=== PATIENT | female | born 1980 | race Caucasian/White ===

== ENCOUNTER 2017-03-22 17:12 | Emergency (ER) | payer OTHER ==
[~2017-03-22] VITALS: Ht 154.9 cm; Wt 80.7 kg
[~2017-03-22 17:12] MED LIST: FLEXERIL10 MG PO; GLUCOPHAGE1000 MG PO; NOVOLOG 10100 UNITS/ SC; PERCOCET 5/31 TABLET PO
[2017-03-22 17:42] LABS: POINT-OF-CARE METER ID UU13113778; POINT-OF-CARE USER ID NUTJLF39
[2017-03-22 18:14] LABS: HEMATOCRIT 42.8 % (36.0-46.0); MCH 28.3 PG (29.0-34.0); MCHC 33.9 G/DL (30.0-36.0); MCV 83.6 FL (83-99); MEAN PLAT.VOLUME 11.6 uM^3 (9.5-12.4); PLATELET COUNT 222 K/uL (156-360); RBC DIS.WIDTH-CV 12.3 % (11.8-14.6); RBC DIS.WIDTH-SD 37.2 % (39-53); RED BLOOD COUNT 5.12 M/uL (3.80-5.20); WHITE BLOOD COUNT 10.1 K/uL (4.1-10.2)
[2017-03-22 18:23] LABS: CHLORIDE 101 mEq/L (99-109); POTASSIUM 3.8 mEq/L (3.7-5.4); SODIUM 133 mEq/L (136-147)
[2017-03-22 18:27] LABS: ANION GAP 8 MEQ/L (2-14); TOTAL BILIRUBIN 0.7 mg/dL (0.0-1.0)
[2017-03-22 18:29] LABS: ALKALINE PHOSPHATASE 90 IU/L (3-129); GFR ESTIMATE (CALCULATED) > 59 mL/min/
[2017-03-22 18:30] LABS: UREA NITROGEN (BUN) 14 mg/dL (9-23)
[2017-03-22 18:33] LABS: LIPASE 22 U/L (1.0-51.0)
[2017-03-22 18:38] LABS: QUANTITATIVE HCG < 4.0 MIU/ML
[2017-03-22 18:53] LABS: GLUCOSE 423 mg/dL (70-99)
[2017-03-22 18:53] LABS: ADD MIUA? YES; BILIRUBIN NEGATIVE; BLOOD NEGATIVE; COLOR YELLOW ((YELLOW)); GLUCOSE (STRIP) >=500; KETONES NEGATIVE; LEUKOCYTES NEGATIVE; NITRITE NEGATIVE; PROTEIN (STRIP) NEGATIVE; SPECIFIC GRAVITY 1.043 (1.000-1.030); UROBILINOGEN 0.2 MG/DL (0.2-1.0)
[2017-03-22 18:56] LABS: BACTERIA NONE SEEN /HPF; EPITHELIAL CELLS 1+ /HPF; MUCUS TRACE /LPF; RED BLOOD CELLS 0-5 /HPF (0-5); UCUL ADDED? YES
[2017-03-22] MEDS ORDERED: NORCO 5/3251 TABLET PO (19:59)
[2017-03-22] MEDS ORDERED: COMPAZINE10 MG PO (20:02)
[2017-03-22] MEDS ORDERED: PROTONIX40 MG PO (20:21)
[2017-03-22 20:36] LABS: POINT-OF-CARE METER ID UU13113747
[2017-03-22 21:00] VITALS: BP 131/91
== END 2017-03-22 21:34 | disposition home or self-care (01) ==
LOC: EME 17:12
PROVIDERS: Emergency Medicine
DX: R10.9 Unspecified abdominal pain (principal); E11.9 Type 2 diabetes mellitus without complications; Z96.41 Presence of insulin pump (external) (internal); Z87.891 Personal history of nicotine dependence
CPT/HCPCS: 74177; 76705; 80053; 81003; 82010; 82948; 83690; 84702; 85027; 87086; 93005; 99281; 99285; J0780; J2405; J7030

== ENCOUNTER 2017-09-04 00:30 | Emergency (ER) | payer OTHER ==
[~2017-09-04] VITALS: Ht 154.9 cm; Wt 83.0 kg
[~2017-09-04 00:30] MED LIST changes: +COMPAZINE10 MG PO; +NORCO 5/3251 TABLET PO; +PROTONIX40 MG PO
[2017-09-04 00:44] VITALS: BP 120/100
[2017-09-04] MEDS ORDERED: ZITHROMAX Z-PA250 MG PO (01:49)
[2017-09-04] MEDS ORDERED: SUDAFED PE PRE1 EAC1 PO (01:49)
[2017-09-04] MEDS ORDERED: DIFLUCAN150 MG PO (01:52)
== END 2017-09-04 02:07 | disposition home or self-care (01) ==
LOC: EME 00:30
DX: H66.92 Otitis media, unspecified, left ear (principal); J01.90 Acute sinusitis, unspecified; B37.49 Other urogenital candidiasis; E11.9 Type 2 diabetes mellitus without complications; Z79.84 Long term (current) use of oral hypoglycemic drugs; F17.200 Nicotine dependence, unspecified, uncomplicated
CPT/HCPCS: 99281; 99284

== ENCOUNTER 2018-01-14 18:57 | Emergency (ER) | payer SELFPAY ==
[~2018-01-14] VITALS: Ht 154.9 cm; Wt 77.3 kg
[~2018-01-14 18:57] MED LIST changes: +DIFLUCAN150 MG PO; +SUDAFED PE PRE1 EAC1 PO; +ZITHROMAX Z-PA250 MG PO
[2018-01-14] MEDS ORDERED: CLEOCIN300 MG PO (21:57)
[2018-01-14 22:44] VITALS: BP 124/81
== END 2018-01-14 22:46 | disposition home or self-care (01) ==
LOC: EME 18:57
DX: S93.402A Sprain of unspecified ligament of left ankle, initial encounter (principal); W10.9XXA Fall (on) (from) unspecified stairs and steps, initial encounter; E11.9 Type 2 diabetes mellitus without complications; Z79.4 Long term (current) use of insulin; Z96.41 Presence of insulin pump (external) (internal); F17.200 Nicotine dependence, unspecified, uncomplicated; Z88.5 Allergy status to narcotic agent
CPT/HCPCS: 73610; 81003; 81025; 99281; 99284; J1885

== ENCOUNTER 2018-02-03 19:18 | Emergency (ER) | payer SELFPAY ==
[~2018-02-03] VITALS: Ht 154.9 cm; Wt 75.9 kg
[~2018-02-03 19:18] MED LIST changes: +CLEOCIN300 MG PO
[2018-02-03 20:49] LABS: APPEARANCE CLOUDY ((CLEAR)); BILIRUBIN NEGATIVE; BLOOD MODERATE; COLOR YELLOW ((YELLOW)); GLUCOSE (STRIP) >=500; KETONES 5; LEUKOCYTES LARGE; NITRITE POSITIVE; PROTEIN (STRIP) 100; SPECIFIC GRAVITY 1.041 (1.000-1.030); UROBILINOGEN 0.2 MG/DL (0.2-1.0)
[2018-02-03 21:39] LABS: EPITHELIAL CELLS RARE /HPF; MUCUS RARE /LPF; RED BLOOD CELLS 20-30 /HPF (0-5); UCUL ADDED? YES; WHITE BLOOD CELLS TNTC /HPF (0-5)
[2018-02-03 21:43] LABS: BACTERIA 1+ /HPF
[2018-02-03 22:05] LABS: HEMOGLOBIN 13.6 G/DL (11.9-15.5); MCH 28.6 PG (29.0-34.0); MCV 84.2 FL (83-99); PLATELET COUNT 235 K/uL (156-360); RBC DIS.WIDTH-CV 12.2 % (11.8-14.6); RBC DIS.WIDTH-SD 37.1 % (39-53); RED BLOOD COUNT 4.75 M/uL (3.80-5.20); WHITE BLOOD COUNT 12.4 K/uL (4.1-10.2)
[2018-02-03 22:07] LABS: CARBON DIOXIDE (BICARBONATE) 32.2 MEQ/L (20-31)
[2018-02-03 22:12] LABS: CHLORIDE 102 mEq/L (99-109); POTASSIUM 3.4 mEq/L (3.7-5.4); SODIUM 139 mEq/L (136-147)
[2018-02-03 22:15] LABS: GLUCOSE 278 mg/dL (70-99)
[2018-02-03 22:17] LABS: TOTAL BILIRUBIN 0.6 mg/dL (0.0-1.0)
[2018-02-03 22:18] LABS: ALKALINE PHOSPHATASE 104 IU/L (3-129); CREATININE 0.7 mg/dL (0.6-1.3); GFR ESTIMATE (CALCULATED) > 59 mL/min/
[2018-02-03 22:19] LABS: UREA NITROGEN (BUN) 13 mg/dL (9-23)
[2018-02-03 22:20] LABS: AST (GOT) 11 IU/L (2-34)
[2018-02-03 22:21] LABS: ALT (GPT) 12 IU/L (3-49)
[2018-02-03 22:27] LABS: QUANTITATIVE HCG < 4.0 MIU/ML
[2018-02-03] MEDS ORDERED: BACTRIM,SEPT1 TABLET PO (23:31)
[2018-02-03] MEDS ORDERED: KEFLEX500 MG PO (23:31)
[2018-02-03] MEDS ORDERED: GLUCOPHAGE1000 MG PO (23:33)
[2018-02-03 23:58] VITALS: BP 133/86
== END 2018-02-04 00:03 | disposition home or self-care (01) ==
LOC: EME 19:18
PROVIDERS: Physician Assistant
DX: N39.0 Urinary tract infection, site not specified (principal); E11.9 Type 2 diabetes mellitus without complications; Z91.14 Patient's other noncompliance with medication regimen; Z87.440 Personal history of urinary (tract) infections; Z79.4 Long term (current) use of insulin; F17.200 Nicotine dependence, unspecified, uncomplicated; Z88.5 Allergy status to narcotic agent
CPT/HCPCS: 80053; 81003; 82010; 82803; 84702; 85027; 87070; 87075; 87077; 87086; 87186; 87205; 99281; 99285; J0696; J7030